=== PATIENT | female | born 2005 | race Caucasian/White ===

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

== ENCOUNTER 2025-06-19 12:07 | Emergency (ER) | payer MEDICAID ==
[~2025-06-19] VITALS: Ht 165.1 cm; Wt 54.5 kg
[~2025-06-19 12:07] MED LIST: IBUP600T52 PO
--- NOTE | 2025-06-19 12:38 | Physician Documentation ---
History of Present Illness ~ Chief Complaint: Abscess Stated Complaint: STAPH INFECTION Time Seen by MD: 13:44 Primary Medical Doctor: NONE HPI This is a 19-year-old female who presents due to concerns for poison oak exposure as well as two abscesses. She reports the abscesses are located in the left nostril in the left lower extremity. She denies chills or fever today. Tetanus Within 5 Years: Yes Medication Reconciliation Allergies: Coded Allergies: No Known Allergies (Unverified , 06/19/25) Scheduled Ibuprofen (Ibuprofen), 1 TAB PO Q8H Prednisone* (Prednisone*), 2 TAB PO DAILY Sulfamethoxazole/Trimethoprim (Bactrim Ds Tablet), 1 TAB PO Q12H Miscellaneous Medications Home Med List (No Home Medications), (Reported) Past Medical History Past Medical History: No Pertinent History Review of Systems ROS As stated above in the HPI, otherwise all systems are reviewed and negative. Physical Exam Vital Signs: Temperature: 98.0, Source: Temporal, Heart Rate: 96, Respiratory Rate: 18, BP: 107/55, Pulse Oximetry: 98, Weight: 54.550 Physical Exam General: Alert, no apparent distress. HEENT: PERRL, EOMI, no injection, moist mucous membranes. Small abscess inside left nostril. Neck: Full range of motion. Respiratory: Lungs clear, no respiratory distress. Chest: No accessory muscle use. Cardiovascular: Regular rate and rhythm, no murmurs. Gastrointestinal: Soft, nontender, nondistended. Bowels sounds present. Extremities: Normal range of motion, no deformity. Neurologic: Oriented x4. Psychiatric: Normal mood and affect. Skin: Normal color, warm and dry. No edema, no ecchymosis. Maculopapular erythematous rash to abdomen, suspicious for poison oak dermatitis. Numerous other superficial open areas and abscesses to the trunk and extremities. Progress Results/Orders Results/Orders Vital Signs 06/19/25 06/19/25 06/19/25 06/19/25 12:34 13:35 14:15 16:20 Temp 98.0 98.3 98.3 98.3 Pulse 96 92 78 66 Resp 18 16 18 18 B/P (MAP) 107/55 110/66 (81) 104/70 (81) 135/86 Pulse Ox 98 98 98 99 O2 Flow Rate 0 0 Medical Decision Making Additional Comment 19 yr old female presents with multiple concerns. She was found to have several cellulitic areas with abscesses parent her boyfriend has known MRSA. She was also found to have mild poison oak to the trunk. She was treated for both these concerns Departure Time of Disposition: 14:03 Disposition: 01 HOME / SELF CARE / HOMELESS Impression: Primary Impression: Cellulitis Additional Impressions: Abscess Poison oak dermatitis Condition: Stable Discharge Instructions: Cellulitis, Adult, [id number], Poison [place] Dermatitis Additional Instructions: The prescribed antibiotic for the infected areas. Complete the full course, which is to take the tablets twice daily for a week. Take the prednisone as prescribed for your poison oak. Return if worse. Departure Forms: Excuse form Work or School Excused From: Work Excuse beginning now through the following date: Jun 22, 2025 Referrals: NO PRIMARY CARE PROVIDER (PCP) Prescriptions Prednisone* (Prednisone*) 20 Mg Tablet 2 TAB PO DAILY, #10 TAB Prov: RUPA ISRAEL NP 06/19/25 Sulfamethoxazole/Trimethoprim (Bactrim Ds Tablet) 800 Mg-160 Mg Tablet 1 TAB PO Q12H for 7 Days, #14 TAB Prov: RUPA ISRAEL NP 06/19/25 Education Educated: Patient, Family Educated regarding: diagnosis, treatment, prognosis, need for follow up Signature Scribe Signature: x Attestation: The note accurately reflects work and decisions made by me.Rupa Syed NP 06/19/25 12:37 RUPA ISRAEL NP Jun 19, 2025 12:38
[2025-06-19] MEDS ORDERED: NO HOME MEDS (13:35)
[2025-06-19] MEDS ORDERED: PRED20TA PO (14:04)
[2025-06-19] MEDS ORDERED: SULF1TAB49 PO (14:04)
[2025-06-19 16:20] VITALS: BP 135/86; PULSE 66; RESP 18; TEMP 98.3; O2SAT 99
== END 2025-06-19 16:26 | disposition home or self-care (01) ==
LOC: ER 12:08
DX: J34.0 Abscess, furuncle and carbuncle of nose (principal); L23.7 Allergic contact dermatitis due to plants, except food
CPT/HCPCS: 99283

== ENCOUNTER 2025-07-04 22:22 | Emergency (ER) | payer MEDICAID ==
[~2025-07-04] VITALS: Ht 165.1 cm; Wt 54.5 kg
[~2025-07-04 22:22] MED LIST changes: +NO HOME MEDS; +PRED20TA PO
[2025-07-04 23:20] VITALS: BP 113/70; PULSE 80; RESP 16; O2SAT 97
[2025-07-04] MEDS ORDERED: DOXY100C43 PO (23:29)
[2025-07-04] MEDS ORDERED: IBUP-1984 PO (23:29)
--- NOTE | 2025-07-04 23:29 | Physician Documentation ---
History of Present Illness ~ Chief Complaint: Rash Stated Complaint: INFECTION Time Seen by MD: 23:24 Primary Medical Doctor: NONE HPI Excoriated lesions of the back consistent with staff. Patient is treated with prednisone for suspected contact dermatitis. Subsequently she has a secondary infection. Her partner has similar infection. No other recent hospitalizations, travels or known ill contacts. Medication Reconciliation Allergies: Coded Allergies: No Known Allergies (Unverified , 07/04/25) Scheduled Doxycycline Monohydrate (Doxycycline Monohydrate), 100 MG PO BID Ibuprofen (Ibuprofen), 1 TAB PO Q8H Prednisone* (Prednisone*), 2 TAB PO DAILY Scheduled PRN Ibuprofen* (Motrin*), 1 TAB PO Q6H PRN PRN for pain or fever Miscellaneous Medications Home Med List (No Home Medications), (Reported) Past Medical History Past Medical History: No Pertinent History Review of Systems All Other Systems at this time: Reviewed and Negative Integumentary: Reports: rash; Denies: lesions Physical Exam Vital Signs: RN Vital Signs have been reviewed: Yes, Temperature: 97.7, Source: Temporal, Heart Rate: 80, Respiratory Rate: 16, BP: 113/70, Pulse Oximetry: 97, Weight: 54.500 General Appearance: alert, WD/WN Respiratory: no respiratory distress Cardiovascular: regular rate, rhythm Gastrointestinal: non-tender Back: other Back Several excoriated lesions to the right trapezium, no bullae, no purpura Extremities: normal range of motion Skin: warm/dry Neurologic: oriented x4 Psychiatric: normal mood/affect Progress Results/Orders Results/Orders Vital Signs 07/04/25 07/04/25 23:20 23:40 Temp 97.7 97.7 Pulse 80 Resp 16 B/P (MAP) 113/70 Pulse Ox 97 Medical Decision Making Additional information obtaine: N/A Findings Examination history consistent with a secondary infection from initial contact dermatitis. Differential Dx:Considerations: Include: Herpes zoster, Impetigo, Intertrigo Departure Disposition: 01 HOME / SELF CARE / HOMELESS Impression: Primary Impression: Infection of skin and subcutaneous tissue Condition: Stable Discharge Instructions: Cellulitis, Adult Additional Instructions: Please begin antibiotics as directed and follow up with the primary care physician. Referrals: NO PRIMARY CARE PROVIDER (PCP) Prescriptions Ibuprofen* (Motrin*) 400 Mg Tablet 1 TAB PO Q6H PRN PRN for pain or fever for 5 Days, #20 TAB Prov: TAYLER YOUNG 07/04/25 Doxycycline Monohydrate (Doxycycline Monohydrate) 100 Mg Capsule 100 MG PO BID, #20 CAP may sub doxycycline hyclate or azithromycin z-pack as prescribed Prov: TAYLER YOUNG 07/04/25 Education Educated: Patient Educated regarding: diagnosis, treatment, prognosis, need for follow up Signature Scribe Signature: . Attestation: . TAYLER YOUNG Jul 04, 2025 23:29
[2025-07-04 23:40] VITALS: TEMP 97.7
== END 2025-07-04 23:42 | disposition home or self-care (01) ==
LOC: ER 22:23
DX: L08.9 Local infection of the skin and subcutaneous tissue, unspecified (principal); Z79.52 Long term (current) use of systemic steroids; Z79.899 Other long term (current) drug therapy
CPT/HCPCS: 99283

== ENCOUNTER 2025-09-08 00:36 | Emergency (ER) | payer MEDICAID ==
[~2025-09-08] VITALS: Ht 160 cm; Wt 54.5 kg
[~2025-09-08 00:36] MED LIST changes: -PRED20TA PO
[2025-09-08 00:56] VITALS: BP 120/58; PULSE 93; RESP 18; TEMP 98; O2SAT 96
== END 2025-09-08 08:44 | disposition left against medical advice (07) ==
LOC: ER 00:36
DX: M79.89 Other specified soft tissue disorders (principal); Z53.1 Procedure and treatment not carried out because of patient's decision for reasons of belief and group pressure
CPT/HCPCS: 99281